=== PATIENT | male | born 1970 ===

== ENCOUNTER 2023-04-25 14:35 | Outpatient (AMB) | payer OTHER, SELFPAY ==
[2023-04-25 14:46] VITALS: BP 112/80; PULSE 64; O2SAT 97
--- NOTE | 2023-04-25 14:46 | HO.NEPHOV_ITS ---
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 He was found to have para esophageal hernia for which he is having a surgical consultation soon. He has cut back on his eating and has lost weight. Imaging studies of his chest and abdomen showed a small renal stone of 1 mm in his right kidney. He has no hematuria or flank pain. He has not passed any grit or gravel. He has been having prostatic symptoms. His last PSA was normal. His last serum creatinine was 1.1. FORMERLY [facility], [facility] Medical History (Updated 04/25/23 @ 16:14 by Octaviano Harrington MD) Absent kidney Surgical History (Updated 04/25/23 @ 14:50 by Josefa Montesinos MA) History of shoulder surgery History of nephrectomy Family History (Updated 04/25/23 @ 14:51 by Josefa Montesinos MA) Mother Kidney disease Maternal Uncle Kidney disease Social History (Updated 04/25/23 @ 14:54 by Josefa Montesinos MA) Comment: Socially/Rare Patient Tobacco Use Status: Never used Tobacco Substance Use Type: Marijuana Vital Signs 04/25/23 14:46 Height 5 ft 6 in Weight 186 lb BMI 30.0 BP 112/80 Blood Pressure Location Lt brachial Position Sitting Pulse 64 Pulse Source Pulse Oximeter Pulse Oximetry (%) 97 Oxygen Delivery Method Room Air Physical Exam Vital Signs: Last Vital Signs Pulse 64 04/25/23 14:46 BP 112/80 04/25/23 14:46 Pulse Ox 97 04/25/23 14:46 Oxygen Delivery Method Room Air 04/25/23 14:46 BMI result Body Mass Index 30.0 Const General: comfortable and no acute distress Orientation/consciousness: patient oriented x3 HEENT Head: Yes normocephalic Mouth: Normal oral and palatal mucosa present Eyes EOM: EOMs intact bilaterally Neck Neck: Yes supple Resp Auscultation: clear to auscultation bilaterally Cardio Jugular venous distension: no JVD Rate: regular rate GI Palpation (GI): Soft to palpation Auscultation: normal bowel sounds General: Yes no CVA tenderness Back/Spine/Pelvis Back: no CVA tenderness Skin General skin exam: no rashes or lesions noted Neuro General: patient oriented x3 and moves all extremities Extrem General: Yes no pedal edema Assessment & Plan Assessment & Plan (1) Calculus (=stone): Code(s): N20.9 - Urinary calculus, unspecified Qualifiers: Urinary calculus location: kidney Qualified Code(s): N20.0 - Calculus of kidney (2) Solitary kidney, acquired: Code(s): Z90.5 - Acquired absence of kidney Plan Dylon has 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 He is not known to have any proteinuria. His blood pressure has been normal. He is at risk for hypertension and hyper filtration. There is no indication for any SYMONE-inhibitor at this moment in time. Recent imaging studies showed 1 mm stone on his right kidney. I asked him to cut down sodium in the diet, increase hydration, increase citrate in the diet and fluid and do a 24 hour urine for stone screen. I also prescribed him Flomax 0.4 mg given his prostatic symptoms. He should be on a low oxalate diet. I plan to repeat an ultrasound after the next visit. He may need HCTZ and or potassium citrate based on evolving data. Answered all question. Follow-up given Orders: Orders Sodium, 24Hr Urine Group Today N20.9 - Urinary calculus, unspecified Oxalate, 24 Hr Today N20.9 - Urinary calculus, unspecified Calcium, 24 Hr Ur Today N20.9 - Urinary calculus, unspecified Uric Acid, 24Hr Urine Group Today N20.9 - Urinary calculus, unspecified Citric Acid 24hr Urine Today N20.9 - Urinary calculus, unspecified Medications: New tamsulosin 0.4 mg PO DAILY 30 days 30 caps 6RF Coding Level of Care Code Est Pt Level 4 (41580) Diagnoses Calculus of kidney N20.0 Urinary calculus location: kidney Solitary kidney, acquired Z90.5 Results Reviewed Nephrology Results: Hgb 15.7 g/dL (14.0-18.0) 10/24/18 WBC 6.6 X10*3/uL (4.8-10.8) 10/24/18 Plt Count 237 X10*3/uL (160-400) 10/24/18 Sodium 139 MMOL/L (135-145) 10/24/18 Potassium 4.4 MMOL/L (3.3-5.1) 10/24/18 Chloride 105 MMOL/L (96-108) 10/24/18 BUN 19 MG/DL (9-16) H 10/24/18 Creatinine 1.25 MG/DL (0.5-1.4) 10/24/18 Calcium 9.7 MG/DL (8.4-10.2) 10/24/18 Urine Protein TRACE (NEG - TRACE) 10/24/18
== END 2023-04-25 15:30 | disposition home or self-care (01) ==
PROVIDERS: PCP Internal Medicine; Visit Provider Internal Medicine Nephrology
DX: N20.0 Calculus of kidney (principal); Z90.5 Acquired absence of kidney
CPT/HCPCS: 99214

== ENCOUNTER → 2023-04-25 14:35 | Outpatient (BNVA) | payer OTHER, SELFPAY | PROVIDERS: PCP Internal Medicine; Visit Provider Internal Medicine Nephrology | DX: N20.0 Calculus of kidney (principal); Z90.5 Acquired absence of kidney | CPT/HCPCS: 99212 ==

== ENCOUNTER 2023-11-19 15:29 | Outpatient (AMB) | payer OTHER, SELFPAY ==
--- NOTE | 2023-11-19 16:16 | HO.NEPHOV ---
Vital Signs 11/19/23 16:17 Height 5 ft 6 in Weight 187 lb 4 oz BMI 30.2 BP 120/82 Blood Pressure Location Lt brachial Position Sitting Pulse 66 Pulse Source Pulse Oximeter Pulse Oximetry (%) 96 Oxygen Delivery Method Room Air Intake Visit Reasons: 6 mon fu/ Needs late appt due to work. 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 He was found to have para esophageal hernia and was repaired. He has cut back on his eating and has lost weight. Imaging studies of his chest and abdomen showed a small renal stone of 1 mm in his right kidney. He has no hematuria or flank pain. He has not passed any grit or gravel. His last PSA was normal. His last serum creatinine was 1.1 PFSH Medical History Absent kidney Surgical History History of shoulder surgery History of nephrectomy Family History Mother Kidney disease Maternal Uncle Kidney disease Social History Comment: Socially/Rare Patient Tobacco Use Status: Never used Tobacco Substance Use Type: Marijuana Physical Exam Vital Signs: Last Vital Signs Pulse 66 11/19/23 16:17 BP 120/82 11/19/23 16:17 Pulse Ox 96 11/19/23 16:17 Oxygen Delivery Method Room Air 11/19/23 16:17 BMI result Body Mass Index 30.2 Const General: comfortable and no acute distress Orientation/consciousness: patient oriented x3 HEENT Head: Yes normocephalic Mouth: Normal oral and palatal mucosa present Eyes EOM: EOMs intact bilaterally Neck Neck: Yes supple Resp Auscultation: clear to auscultation bilaterally Cardio Jugular venous distension: no JVD Rate: regular rate GI Palpation (GI): Soft to palpation Auscultation: normal bowel sounds General: Yes no CVA tenderness Back/Spine/Pelvis Back: no CVA tenderness Skin General skin exam: no rashes or lesions noted Neuro General: patient oriented x3 and moves all extremities Extrem General: Yes no pedal edema Assessment & Plan Assessment & Plan (1) Solitary kidney, acquired: Code(s): Z90.5 - Acquired absence of kidney Category: Medical (2) Calculus (=stone): Code(s): N20.9 - Urinary calculus, unspecified Category: Medical Qualifiers: Urinary calculus location: kidney Qualified Code(s): N20.0 - Calculus of kidney Plan Dylon has 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 He is not known to have any proteinuria. His blood pressure has been normal. He is at risk for hypertension and hyper filtration. There is no indication for any SYMONE-inhibitor at this moment in time. Recent imaging studies showed 1 mm stone on his right kidney. I asked him to cut down sodium in the diet, increase hydration, increase citrate in the diet and fluid . HIs 24 hour urine for stone screen showed hypercalciuria. I increased his Flomax to 0.8 mg given his prostatic symptoms. He should be on a low oxalate diet. I plan to repeat an ultrasound in Mar. He may need HCTZ based on evolving data. Answered all question. Follow-up given Orders: Orders Creatinine Today N20.0 - Calculus of kidney, Z90.5 - Acquired absence of kidney Blood Urea Nitrogen Today N20.0 - Calculus of kidney, Z90.5 - Acquired absence of kidney Electrolytes Today N20.0 - Calculus of kidney, Z90.5 - Acquired absence of kidney Coding Level of Care Code Est Pt Level 4 (73322) Diagnoses Solitary kidney, acquired Z90.5 Calculus of kidney N20.0 Urinary calculus location: kidney
[2023-11-19 16:17] VITALS: BP 120/82; PULSE 66; O2SAT 96; BMI 30.2
== END 2023-11-19 16:45 | disposition home or self-care (01) ==
PROVIDERS: PCP Internal Medicine; Visit Provider Internal Medicine Nephrology
DX: Z90.5 Acquired absence of kidney (principal); N20.0 Calculus of kidney
CPT/HCPCS: 99214

== ENCOUNTER → 2023-11-19 15:29 | Outpatient (BNVA) | payer OTHER, SELFPAY | PROVIDERS: PCP Internal Medicine; Visit Provider Internal Medicine Nephrology | DX: N20.0 Calculus of kidney (principal); Z90.5 Acquired absence of kidney | CPT/HCPCS: 99212 ==

== ENCOUNTER 2024-06-02 14:59 | Outpatient (AMB) | payer OTHER, SELFPAY ==
--- NOTE | 2024-06-02 15:06 | HO.NEPHOV ---
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 He was found to have para esophageal hernia and was repaired. He has cut back on his eating and has lost weight. Imaging studies of his chest and abdomen showed a small renal stone of 1 mm in his right kidney. He has no hematuria or flank pain. He has not passed any grit or gravel. His last PSA was normal. His last serum creatinine was 1.1. He is on Terbanafine FORMERLY [facility], [facility] Medical History Absent kidney Surgical History History of shoulder surgery History of nephrectomy Family History Mother Kidney disease Maternal Uncle Kidney disease Social History Comment: Socially/Rare Patient Tobacco Use Status: Never used Tobacco Substance Use Type: Marijuana Review of Systems Const All systems reviewed & are unremarkable except as noted in HPI and below Physical Exam Vital Signs: Last Vital Signs Pulse 65 06/02/24 15:07 BP 130/80 06/02/24 15:07 Pulse Ox 96 06/02/24 15:07 Oxygen Delivery Method Room Air 06/02/24 15:07 BMI result Body Mass Index 29.5 Const General: comfortable and no acute distress Orientation/consciousness: patient oriented x3 HEENT Head: Yes normocephalic Mouth: Normal oral and palatal mucosa present Eyes EOM: EOMs intact bilaterally Neck Neck: Yes supple Resp Auscultation: clear to auscultation bilaterally Cardio Jugular venous distension: no JVD Rate: regular rate GI Palpation (GI): Soft to palpation Auscultation: normal bowel sounds General: Yes no CVA tenderness Back/Spine/Pelvis Back: no CVA tenderness Skin General skin exam: no rashes or lesions noted Neuro General: patient oriented x3 and moves all extremities Extrem General: Yes no pedal edema Results Reviewed Nephrology Results: Hgb 15.7 g/dL (14.0-18.0) 10/24/18 WBC 6.6 X10*3/uL (4.8-10.8) 10/24/18 Plt Count 237 X10*3/uL (160-400) 10/24/18 Sodium 139 MMOL/L (135-145) 10/24/18 Potassium 4.4 MMOL/L (3.3-5.1) 10/24/18 Chloride 105 MMOL/L (96-108) 10/24/18 BUN 19 MG/DL (9-16) H 10/24/18 Creatinine 1.25 MG/DL (0.5-1.4) 10/24/18 Calcium 9.7 MG/DL (8.4-10.2) 10/24/18 Urine Protein TRACE (NEG - TRACE) 10/24/18 Assessment & Plan Assessment & Plan (1) Calculus (=stone): Code(s): N20.9 - Urinary calculus, unspecified Category: Medical Qualifiers: Urinary calculus location: kidney Qualified Code(s): N20.0 - Calculus of kidney (2) Solitary kidney, acquired: Code(s): Z90.5 - Acquired absence of kidney Category: Medical Plan Dylon has 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 He is not known to have any proteinuria. His blood pressure has been normal. He is at risk for hypertension and hyper filtration. There is no indication for any SYMONE-inhibitor at this moment in time. Last imaging studies showed 1 mm stone on his right kidney. I asked him to cut down sodium in the diet, increase hydration, increase citrate in the diet and fluid . HIs 24 hour urine for stone screen showed hypercalciuria. He can continue Flomax 0.8 mg daily given his prostatic symptoms. He should be on a low oxalate diet. I ordered a repeat a renal ultrasound . He may need HCTZ based on evolving data. Answered all question. Follow-up given Orders: Orders US renal BI 6 Months N20.0 - Calculus of kidney, Z90.5 - Acquired absence of kidney Electrolytes 6 Months N20.0 - Calculus of kidney, Z90.5 - Acquired absence of kidney Calcium 6 Months N20.0 - Calculus of kidney, Z90.5 - Acquired absence of kidney Protein Creatinine Ratio, Ur 6 Months N20.0 - Calculus of kidney, Z90.5 - Acquired absence of kidney Creatinine 6 Months N20.0 - Calculus of kidney, Z90.5 - Acquired absence of kidney Blood Urea Nitrogen 6 Months N20.0 - Calculus of kidney, Z90.5 - Acquired absence of kidney Coding Level of Care Code Est Pt Level 4 (66464) Diagnoses Calculus of kidney N20.0 Urinary calculus location: kidney Solitary kidney, acquired Z90.5
[2024-06-02 15:07] VITALS: BP 130/80; PULSE 65; O2SAT 96; BMI 29.5
== END 2024-06-02 15:44 | disposition home or self-care (01) ==
LOC: HO.HKAS 14:59
PROVIDERS: PCP Internal Medicine; Visit Provider Internal Medicine Nephrology
DX: N20.0 Calculus of kidney (principal); Z90.5 Acquired absence of kidney
CPT/HCPCS: 99214

== ENCOUNTER → 2024-06-02 14:59 | Outpatient (BNVA) | payer OTHER, SELFPAY | PROVIDERS: PCP Internal Medicine; Visit Provider Internal Medicine Nephrology | DX: N20.0 Calculus of kidney (principal); Z90.5 Acquired absence of kidney | CPT/HCPCS: 99212 ==

== ENCOUNTER 2024-11-24 15:11 | Outpatient (AMB) | payer OTHER, SELFPAY ==
--- OUTSIDE RECORDS SUMMARY | 2024-11-19 15:23 | XMS_ITS | Encounter Summary ---
Author Organization [facility] Address [address] [place] [address] Phone Care Team Providers Care Noc Engineer Name Role Phone Cesario Calix MD Unavailable [phone] Cesario Calix MD Primary Care Provider [phone] Encounter Details Date Type Department Care Team (Latest Contact Info) Description 11/19/2024 3:23 PM EDT - 11/19/2024 11:59 PM EDT Hospital Encounter [facility] [address] [place] [address] Octaviano Harrington MD [address] [place] [address] Discharge Disposition: Home or Self Care Social History Tobacco Use Types Packs/Day Years Used Date Smoking Tobacco: Never Smokeless Tobacco: Never Alcohol Use Standard Drinks/Week Comments Never 0 (1 standard drink = 0.6 oz pur e alcohol) Child or Family Care Answer Date Record ed Do you have problems with on e of the following making it difficult for you to work, study, or receive health care? No 07/04/2023 Education Answer Date Recorded Are you interested in help w ith more adult education (for example, completing high school, GED, job training, learning the Stateless language, technical skills, or developing parenting skills)? No 07/04/2023 Are you concerned about learning? Not on file 07/04/2023 No 07/04/2023 Yes 07/04/2023 Food Answer Date Recorded Within the past 6 months we worried whether our food would run out before we got money to buy more. Never True 07/04/2023 Within the past 6 months the food we bought just didn't last and we didn't have enough money to get more. Never True Residential Stability Answer Date Recor ded What is your housing situation today? I have perez sing 07/04/2023 How many times have you move d in the past 12 months? Zero (I did not move) 07/04/2023 Paying for Meds Answer Date Recorded Do you have trouble paying for medicines? No 07/04/2023 Paying Utility Bills Answer Date Record ed Do you have trouble paying your heating or elect ricity bill? No 07/04/2023 Transportation Answer Date Recorded Has the lack of transportati on kept you from medical appointments or from getting medications? No 07/04/2023 Digital Access Answer Date Recorded No 07/04/2023 Yes 07/04/2023 Do you have reliable internet access at home? Ye s 07/04/2023 Do you have a device (e.g., phone, tablet, computer) with a working camera? Yes 07/04/2023 Intimate Partner Violence Answer Date R ecorded Are you denied basic needs s uch as food, clothing, or medical care? No 06/30/2023 In the past 12 months have y ou been in a relationship with a person who hurts, threatens, or tries to control you? No 06/30/2023 Are you denied basic needs s uch as food, clothing, or medical care? No 06/30/2023 In the past 12 months have y ou been in a relationship with a person who hurts, threatens, or tries to control you? 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 Do NOT exceed 3000 mg of acetaminophen per 24 hours from all sources. Available over the counter. 07/01/2023 docusate sodium (COLACE) 100 MG capsule Take 1 capsule (100 mg total) by mouth 2 (two) times a day. 60 capsule 6 06/27/2023 ferrous gluconate 324 mg (37.5 mg elemental) TabIndications:A nemia, unspecified type Take 1 tablet (324 mg total) by mouth daily. STOP taking for 1 week after surgery. 07/01/2023 omeprazole (PRILOSEC) 40 MG capsule Take 1 capsule by mouth 2 (two) times a day. 04/02/2023 tamsulosin (FLOMAX) 0.4 mg Cap Take 1 capsule by mouth every morning. 04/26/2023 documented as of this encounter Plan of Treatment Upcoming Encounters Date Type Department Care Team (Late st Contact Info) Description 04/20/2025 3:15 PM EST Office Visit [facility] [address] [place] [address] [place] [address] Cesario Calix MD [address] [place], [place] [id number] [email or web address] documented as of this encounter Procedures Procedure Name Priority Date/Time Associated Diagnosis Comments TOTAL PROTEIN CREATININE RATIO, RANDOM URINE Routine 11/19/2024 3:34 PM EDT Calculus of kidney Acquired absence of kidney CREATININE/EGFR Routine 11/19/2024 3:24 PM EDT Calculus of kidney Acquired absence of kidney BUN Routine 11/19/2024 3:24 PM EDT Calculus of kidney Acquired absence of kidney CALCIUM Routine 11/19/2024 3:24 PM EDT Calculus of kidney Acquired absence of kidney ELECTROLYTES Routine 11/19/2024 3:24 PM EDT Calculus of kidney Acquired absence of kidney documented in this encounter Results * TOTAL PROTEIN CREATININE RATIO, RANDOM URINE (11/19/2024 3:34 PM EDT) URINE TOTAL PROTEIN 9.0 mg/dL [facility] URINE CREATININE 139 mg/dL [facility] URINE TP CRE RATIO 0.06 0 - 0.19 [facility] Urine (Urine) 11/19/2024 3:3 4 PM EDT 11/19/2024 3:39 PM EDT us Octaviano Harrington MD URINE ORDERABLES Final Result Performing Organization Address [facility] Co de Phone Number [address] [address] * (ABNORMAL) BUN (11/19/2024 3:24 PM EDT) BUN 22(H) 6 - 19 mg/dL [facility] Blood 11/19/2024 3:24 PM EDT 11/19/2024 3:31 PM EDT us Octaviano Harrington MD LAB BLOOD ORDERAB LES Final Result Performing Organization Address [facility] Co de Phone Number [address] [address] * Creatinine/eGFR (11/19/2024 3:24 PM EDT) CREATININE 1.00 0.5 - 1.5 mg/dL [facility] EGFR 88 >59 mL/min/1.7 3m2 [facility] Comment:Estimated glomerular filtration rate calculated using the CKD-EPI refit equation. Blood 11/19/2024 3:24 PM EDT 11/19/2024 3:31 PM EDT us Octaviano Harrington MD LAB BLOOD ORDERAB LES Final Result Performing Organization Address [facility]/ZIP Co de Phone Number [address] [address] * Calcium (11/19/2024 3:24 PM EDT) CALCIUM 9.8 8.4 - 10.3 mg/dL [facility] Blood 11/19/2024 3:24 PM EDT 11/19/2024 3:31 PM EDT us Octaviano Harrington MD LAB BLOOD ORDERAB LES Final Result [address] [address] * Electrolytes (11/19/2024 3:24 PM EDT) SODIUM 139 133 - 146 mmol/L [facility] POTASSIUM 4.2 3.3 - 5.1 mmol/L [facility] CHLORIDE 104 96 - 108 mmol/L [facility] CO2 23 21 - 35 mmol/L [facility] ANION GAP 16 10 - 20 mmol/L [facility] Blood 11/19/2024 3:24 PM EDT 11/19/2024 3:31 PM EDT us Octaviano Harrington MD LAB BLOOD ORDERAB LES Final Result Performing Organization Address City/[facility]/ZIP Co de Phone Number [address] [address] documented in this encounter Visit Diagnoses Diagnosis Calculus of kidney Acquired absence of kidney documented in this encounter Additional Health Concerns Assessment Noted Time PHQ-2 Depression Total Score: 0 07/04/19 24 9:29 PM EDT documented as of this encounter Care Teams Noc Engineer Relationship Specialty Start Date End Date Cesario Calix MD [address] [place] [address], [address] [place] [address] PCP - General 03/21/17 Cesario Calix MD [address] [place] [address], [address] [place] [address] [email or web address] LMR Provider 01/03/17 documented as of this encounter Additional Source Comments The information contained in this document represents components of the legal health record. It is not the complete legal health record.[facility]
--- NOTE | 2024-11-24 15:17 | HO.NEPHOV_ITS ---
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 He was found to have para esophageal hernia and was repaired. He has cut back on his eating and has lost weight. Imaging studies of his chest and abdomen showed a small renal stone of 1 mm in his right kidney. He has no hematuria or flank pain. He has not passed any grit or gravel. His last PSA was normal. His last serum creatinine was 1.0. [facility] Medical History Absent kidney Surgical History History of shoulder surgery History of nephrectomy Family History Mother Kidney disease Maternal Uncle Kidney disease Social History Comment: Socially/Rare Patient Tobacco Use Status: Never used Tobacco Substance Use Type: Marijuana Review of Systems Const All systems reviewed & are unremarkable except as noted in HPI and below Physical Exam Vital Signs: Last Vital Signs BP 114/80 11/24/24 15:19 BMI result Body Mass Index 30.5 Const General: comfortable and no acute distress Orientation/consciousness: patient oriented x3 HEENT Head: Yes normocephalic Mouth: Normal oral and palatal mucosa present Eyes EOM: EOMs intact bilaterally Neck Neck: Yes supple Resp Auscultation: clear to auscultation bilaterally Cardio Jugular venous distension: no JVD Rate: regular rate GI Palpation (GI): Soft to palpation Auscultation: normal bowel sounds General: Yes no CVA tenderness Back/Spine/Pelvis Back: no CVA tenderness Skin General skin exam: no rashes or lesions noted Neuro General: patient oriented x3 and moves all extremities Extrem General: Yes no pedal edema Assessment & Plan Assessment & Plan (1) Solitary kidney, acquired: Code(s): Z90.5 - Acquired absence of kidney Category: Medical (2) Calculus (=stone): Code(s): N20.9 - Urinary calculus, unspecified Category: Medical Qualifiers: Urinary calculus location: kidney Qualified Code(s): N20.0 - Calculus of kidney Plan Dylon has 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 He is not known to have any proteinuria. His blood pressure has been normal. He is at risk for hypertension and hyper filtration. There is no indication for any SYMONE-inhibitor at this moment in time. Last imaging studies showed no stone on his right kidney. I asked him to cut down sodium in the diet, increase hydration, increase citrate in the diet and fluid . HIs 24 hour urine for stone screen showed hypercalciuria. He can continue Flomax 0.8 mg daily given his prostatic symptoms. He should be on a low oxalate diet. He may need HCTZ based on evolving data. Answered all question. Follow-up given Orders: Orders Calcium 8 Months N20.0 - Calculus of kidney, Z90.5 - Acquired absence of kidney Protein Creatinine Ratio, Ur 8 Months N20.0 - Calculus of kidney, Z90.5 - Acquired absence of kidney Creatinine 8 Months N20.0 - Calculus of kidney, Z90.5 - Acquired absence of kidney Blood Urea Nitrogen 8 Months N20.0 - Calculus of kidney, Z90.5 - Acquired absence of kidney Electrolytes 8 Months N20.0 - Calculus of kidney, Z90.5 - Acquired absence of kidney Coding Level of Care Code Est Pt Level 4 (48585) Diagnoses Solitary kidney, acquired Z90.5 Calculus of kidney N20.0 Urinary calculus location: kidney
[2024-11-24 15:19] VITALS: BP 114/80; BMI 30.5
--- OUTSIDE RECORDS SUMMARY | 2024-11-24 17:34 | XMS_ITS | Encounter Summary ---
Author Organization [facility] Address [address] [place] [address] Phone Care Team Providers Care Night Filler Name Role Phone Cesario Calix MD Unavailable [phone] Cesario Calix MD Primary Care Provider [phone] Encounter Details Date Type Department Care Team (Late st Contact Info) Description 04/02/2023 Procedure Pass [facility] Endoscopy Admitting Dept Virtual Department [address] [place] [address] Social History Tobacco Use Types Packs/Day Years Used Date Smoking Tobacco: Never Smokeless Tobacco: Never Alcohol Use Standard Drinks/Week Comments Not Currently 0 (1 standard drink = 0.6 oz pur e alcohol) rare Child or Family Care Answer Date Record ed Do you have problems with on e of the following making it difficult for you to work, study, or receive health care? No 05/08/2020 Education Answer Date Recorded Are you interested in more education? Not on lisset e 07/13/2022 Are you concerned about learning? Not on file 07/13/2022 No 07/13/2022 No 07/13/2022 Food Answer Date Recorded Within the past 6 months we worried whether our food would run out before we got money to buy more. Never True 05/08/2020 Within the past 6 months the food we bought just didn't last and we didn't have enough money to get more. Never True Paying for Meds Answer Date Recorded Do you have trouble paying for medicines? No 05/08/2020 Paying Utility Bills Answer Date Record ed Do you have trouble paying your heating or elect ricity bill? No 05/08/2020 Transportation Answer Date Recorded Has the lack of transportati on kept you from medical appointments or from getting medications? No 05/08/2020 Digital Access Answer Date Recorded No 08/13/2022 No 08/13/2022 Reliable internet access at home? Not on file 08/13/2022 Device with a working camera? Not on file Sex and Gender Information Value Date Recorded Sex Assigned at Male 05/07/2019 9:59 PM EST Legal Sex Male 9:36 PM EDT Gender Identity Male 05/07/2019 9:59 PM EST Sexual Orientation Straight 06/30/2023 5: 33 AM EDT documented as of this encounter Plan of Treatment Upcoming Encounters Date Type Department Care Team (Late st Contact Info) Description 04/20/2025 3:15 PM EST Office Visit [address] [address] Cesario Calix MD [address] [place] [address], [address] [address] documented as of this encounter Visit Diagnoses Not on filedocumented in this encounter Additional Health Concerns Assessment Noted Time PHQ-2 Depression Total Score: 0 03/08/20 23 11:27 AM EST documented as of this encounter Care Teams Night Filler Relationship Specialty Start Date End Date Cesario Calix MD [address] [place] [address], [address] [address] PCP - General 03/21/17 Cesario Calix MD [address] [place] [address], [address] [address] Historical LMR Provider 01/03/17 documented as of this encounter Additional Source Comments The information contained in this document represents components of the legal health record. It is not the complete legal health record.[facility]
--- OUTSIDE RECORDS SUMMARY | 2024-11-24 17:34 | XMS_ITS | Encounter Summary ---
Author Organization [facility] Address [address] [facility] [facility] [address] [place] [address] Phone Care Team Providers Care Pack Worker Name Role Phone Primitivo Zavaleta DPM Unavailable Unavailable Cesario Calix MD Unavailable [phone] Nathalie Ledesma CNP Unavailable [phone] Cesario Calix MD Primary Care Provider [phone] Cesario Calix MD Unavailable [phone] Encounter Details Date Type Department Care Team (Late st Contact Info) Description 02/26/2020 Procedure Pass [place] Admitting Dept - Virtual Department [address] [place] [address] Social History Tobacco Use Types Packs/Day Years Used Date Smoking Tobacco: Never Smokeless Tobacco: Never Alcohol Use Standard Drinks/Week Comments Not Currently 0 (1 standard drink = 0.6 oz pur e alcohol) rare Sex and Gender Information Value Date Recorded Sex Assigned at Male 05/07/2019 9:59 PM EST Legal Sex Male 9:36 PM EDT Gender Identity Male 05/07/2019 9:59 PM EST Sexual Orientation Straight 06/30/2023 5: 33 AM EDT documented as of this encounter Plan of Treatment Upcoming Encounters Date Type Department Care Team (Late st Contact Info) Description 04/20/2025 3:15 PM EST Office Visit [address] [place] [address] Cesario Calix MD [address] [facility], [address] [place] [address] documented as of this encounter Visit Diagnoses Not on filedocumented in this encounter Care Teams Pack Worker Relationship Specialty Start Date End Date Cesario Calix MD [address] [place] [address], [address] [place] [address] PCP - General 03/21/17 Primitivo Zavaleta DPM [address] [place] [address] Historical LMR Provider 01/03/1703/25/21 Cesario Calix MD [address] [place] [address], [address] [place] [address] Historical LMR Provider 01/03/17 Nathalie Ledesma CNP [address] [place] [address], [address] [place] [address] Historical LMR Provider 01/03/17 Cesario Calix MD [address] [place] [address], [address] [place] [address] Insurance Assigned Provider 11/28/19 documented as of this encounter Additional Source Comments The information contained in this document represents components of the legal health record. It is not the complete legal health record.[facility]
--- OUTSIDE RECORDS SUMMARY | 2024-11-24 17:34 | XMS_ITS | Encounter Summary ---
Author Organization [facility] Address [address] [place] [address] Phone Care Team Providers Care Youth Minister Name Role Phone Cesario Calix MD Unavailable [phone] Cesario Calix MD Primary Care Provider [phone] Encounter Details Date Type Department Care Team (Late st Contact Info) Description 06/29/2023 Procedure Pass [facility] Periop 1st floor [address] [place] [address] Social History Tobacco Use Types Packs/Day Years [...] got money to buy more. Never True 06/30/2023 Within the past 6 months the food we bought just didn't last and we didn't have enough money to get more. Never True Residential Stability Answer Date Recor ded What is your housing situation today? I have [employer] pool 06/30/2023 How many times have you move d in the past 12 months? Zero (I did not move) 06/30/2023 Paying for Meds Answer Date Recorded Do you have trouble paying for medicines? No 06/30/2023 Paying Utility Bills Answer Date Record ed Do you have trouble paying your heating or elect ricity bill? No 06/30/2023 Transportation Answer Date Recorded Has the lack of transportati on kept you from medical appointments or from getting medications? No 06/30/2023 Digital Access Answer Date Recorded No 06/30/2023 Yes 06/30/2023 Do you have reliable internet access at home? Ye s 06/30/2023 Do you have a device (e.g., phone, tablet, computer) with a working camera? 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 Wish to be (Past 1 Month) No 024 12:47 AM EDT Negin Ferreira RN 2. Non-Specific Active Suici claudy Thoughts (Past 1 Month) No 06/30/2023 12:47 AM EDT Negin Ferreira RN 6. Suicidal Behavior (Lifetime) No 4 12:47 AM EDT Negin Ferreira RN documented as of this encounter Plan of Treatment Upcoming Encounters Date Type Department Care Team (Late st Contact Info) Description 04/20/2025 3:15 PM EST Office Visit [address] [address] Cesario Calix MD [address] [facility], [address] [place] [address] [email or web address] documented as of this encounter Visit Diagnoses Not on filedocumented in this encounter Additional Health Concerns Assessment Noted Time PHQ-2 Depression Total Score: 0 03/08/20 23 11:27 AM EST documented as of this encounter Care Teams Youth Minister Relationship Specialty Start Date End Date Cesario Calix MD [address] [place] [address], [address] [place] [address] PCP - General 03/21/17 Cesario Calix MD [address] [place] [address], [address] [place] [address] Historical LMR Provider 01/03/17 documented as of this encounter Additional Source Comments The information contained in this document represents components of the legal health record. It is not the complete legal health record.[facility]
--- OUTSIDE RECORDS SUMMARY | 2024-11-24 17:34 | XMS_ITS | Clinical Summary ---
Author Organization [facility] Address [address] [facility] [place] [address] [place] [address] Phone Care Team Providers Care Class B Truck Driver Name Role Phone Lizzy Calix MD Unavailable [phone] Lizzy Calix MD Primary Care Provider [phone] Allergies No known active allergies Medications tamsulosin (FLOMAX) 0.4 mg Cap Take 1 capsule by mouth every morning. 4 Active omeprazole (PRILOSEC) 40 MG capsule Take 1 capsule by mouth 2 (two) times a day. 4 Active docusate sodium (COLACE) 100 MG capsule Take 1 capsule (100 mg total) by mouth 2 (two) times a day. 60 capsule 6 4 Active acetaminophen (TYLENOL) 325 mg tablet Take 2 tablets (650 mg total) by mouth every 6 (six) hours as needed (Mild acute post-operative pain). Do NOT exceed 3000 mg of acetaminophen per 24 hours from all sources. Available over the counter. 4 Active ferrous gluconate 324 mg (37.5 mg elemental) TabIndications: Anemia, unspecified type Take 1 tablet (324 mg total) by mouth daily. STOP taking for 1 week after surgery. 4 Active Active Problems Problem Noted Date Diagnosed Date Benign prostatic hyperplasia with urinary hesita ncy 01/30/2024 Nephrolithiasis 01/30/2024 Overview (01/30/2024): 1mm R stone on CT 2023 Onychomycosis 07/11/2023 Overview (07/11/2023): Trim nail, try Vicks. He had previous oral terbinafine. Hiatal hernia 06/29/2023 Paraesophageal hernia with gastroesophageal refl ux 05/13/2023 Overview (07/11/2023): 2023: hospitalized from June 28 June 30 for laparoscopic takedown of incarcerated paraesophageal hernia and hiatal hernia by Dr. Rangel at [facility]. Assessment & Plan (05/13/2023 4:01 PM EST): This is a 52-year-old gentleman with newly diagnosed paraesophageal hernia causing early satiety, partial obstruction, weight loss, and reflux and limiting his quality of life. 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 The patient has significant esophageal dysmotility given this paraesophageal hernia as well as reflux of the clavicles. I discussed laparoscopic repair of paraesophageal hernia in detail including risk benefits and alternatives and patient would like to proceed with this procedure. The patient was told he must remain on a pur ed diet for 2 weeks following the procedure. He will avoid all heavy lifting greater than 5 to 10 pounds for the first 2 weeks and greater than 15 pounds for the second 2 weeks. I will follow-up with him 2 weeks following the procedure. We will schedule this sometime in the near future. 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 Grade 3 separation of left shoulder 10/02/2019 Resolved Problems Problem Noted Date Diagnosed Date Resolved Date Dyspepsia 03/15/2023 07/11/2023 Intractable abdominal pain 03/15/2023 0 07/11/2023 Unintended weight loss 03/15/202307/10 Overview (03/15/2023): Fall 2022, reports being dt abd pain Encounters Date Type Department Care Team Description 11/19/2024 3:23 PM EDT - 11/19/2024 11:59 PM EDT Hospital Encounter [facility] Laboratory [address] [place] [address] Octaviano Harrington MD Discharge Disposition: Home or Self Care 11/19/2024 Transcribe Orders [facility] Laboratory [address] [place] [address] Octaviano Harrington MD Calculus of kidney (Primary Dx); Acquired absence of kidney from Last 3 Months Immunizations Immunization Administration Dates Next Due COVID-19 (Pre-01/07) Pfizer Vaccine, mRNA, PF 05/30/2020,05/09/2020 Hepatitis B Adult 10/02/2010,06/01/2010,01/27/20 10 INFLUENZA, SPLIT VIRUS, TRIVALENT PF 01/30/2024( Deferred: Other - pt left) INFLUENZA, SPLIT VIRUS, TRIV ALENT W/ PRESERVATIVE IM 03/17/2013,01/02/2010 Influenza Trivalent Adjuvant ed Preservative free IM 11/27/2017 Td (adult),2 Lf Tetanus Toxo id, PF, Adsorbed 06/27/2020 Tdap 01/13/2010 Family History Medical History Relation Comments Kidney failure Mother Relation Status Comments Brother Alive Mother Alive Social History Tobacco Use Types Packs/Day Years [...] high school, GED, job training, learning the Citizen [place] language, technical skills, or developing parenting skills)? 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 Not on file Not on f ile Last Filed Vital Signs Vital Sign Reading Time Taken Comments Blood Pressure 104/62 01/30/2024 2:59 PM EST Pulse 72 01/30/2024 2:59 PM EST Temperature 36.8 C (98.3 F) 01/30/2024 2:59 PM EST Respiratory Rate 18 07/01/2023 11:17 AM EDT Oxygen Saturation 96% 01/30/2024 2:59 PM EST Inhaled Oxygen Concentration - - Weight 85.3 kg (188 lb) 01/30/2024 2:59 PM EST Height 165.5 cm (5' 5.16 ) 01/30/2024 2:59 PM ES T Body Mass Index 31.13 01/30/2024 2:59 PM EST Plan of Treatment Upcoming Encounters Date Type Department Care Team (Late st Contact Info) Description 04/20/2025 3:15 PM EST Office Visit [facility] Medicine [address] [place] [address] [place] [address] Lizzy Calix MD [address] [facility] [place] [address] [email or web address] Health Maintenance Due Date Last Done Comments FIT TEST 2013 FOBT 2013 SIGMOIDOSCOPY 2013 VIRTUAL COLONOSCOPY 2013 PNEUMOCOCCAL VACCINES (50+ years) (1 of 1 - PCV) 2018 ZOSTER VACCINES (1 of 2) 2018 COLOGUARD 03/18/2022 03/18/2019 DEPRESSION SCREENING 07/03/2024 07/04/2023, 12/15/19 20 INFLUENZA VACCINE (#1) 2024 8, 03/17/2013, 01/02/2010 COVID-19 VACCINE ( season) 2024 01/30/2022, 01/16/2021, 05/30/2020, Additional history exists SCREENING FOR DIABETES 06/30/2026 07/01/2023, 2022 LIPID PANEL 02/05/2029 02/06/2024, 02/16, 06/27/2020, Additional history exists Adult Td,Tdap Booster 06/27/2030 06/27/2020, 010 COLONOSCOPY 04/02/2033 04/02/2023 COLORECTAL CANCER SCREENING 04/02/2033 HEPATITIS C SCREENING Completed 06/27/2020 , 06/27/2020, 02/23/2020 SMOKING STATUS SCREENING (Once After 26 Yrs) Completed 07/15/2023 HIV ONE-TIME SCREENING (18-65 YEARS) Completed 02/06/2024 HEPATITIS A VACCINES Aged Out No long er eligible based on patient's age to complete this topic HIB VACCINES Aged Out No longer eligi ble based on patient's age to complete this topic MENINGOCOCCAL VACCINES (ACWY) Aged Out No longer eligible based on patient's age to complete this topic MENINGOCOCCAL VACCINES (B) Aged Out N o longer eligible based on patient's age to complete this topic Medical Devices Implanted Type Area Automotive Parts Clerk Device Identifier Shelf Expiration Date Model / Serial / Lot Tissue Graft 230x7.5mm Flexi Allo Tendon Anterior Tibialis Frozen - [id number] Implanted:Qty : 1 on 02/26/2020 by Johan Tsang DO at [facility] BONETISSUE Left: Clavicle [employer] 12/20/2024 BETH/TIB/ T / / Button Bit [id number] Drill Bone Acufex Ss Cannulated - [id number] Implanted:Qty : 1 on 02/26/2020 by Johan Tsang DO at [facility] STANDARD Left: Clavicle PLASCENCIA 06/09/2024 [id number] / / [id number] Kit Laboratory Plate Screw Acu Sinch - [id number] Implanted:Qty : 1 on 02/26/2020 by Johan Tsang DO at [facility] Left: Clavicle [employer] 06/16/2024 [id number] / / [id number] Procedures Procedure Name Priority Date/Time Associated Diagnosis [...] Calculus of kidney Acquired absence of kidney LIPID PANEL Routine 02/06/2024 3:28 PM EST Well adult health check ENDOSCOPY, COLON 04/02/2023 7:10 AM EST HEPATITIS C ANTIBODY, QUALITATIVE Routine 06/27/2020 10:44 AM EDT Annual physical exam OUTSIDE COLOGUARD Routine 03/18/2019 from Last 3 Months or Most Recently Relevant to Health Maintenance Results * TOTAL PROTEIN CREATININE RATIO, RANDOM URINE (11/19/2024 3:34 PM EDT) URINE TOTAL PROTEIN 9.0 mg/dL [facility] URINE CREATININE 139 mg/dL [facility] URINE TP CRE RATIO 0.06 0 - 0.19 [facility] Urine (Urine) 11/19/2024 3:3 4 PM EDT 11/19/2024 3:39 PM EDT us Octaviano Harrington MD URINE ORDERABLES Final Result [facility] [address] [place] [address] * Creatinine/eGFR (11/19/2024 3:24 PM EDT) CREATININE 1.00 0.5 - 1.5 mg/dL [facility] EGFR 88 >59 mL/min/1.7 3m2 [facility] Comment:Estimated glomerular filtration rate calculated using the CKD-EPI refit equation. Blood 11/19/2024 3:24 PM EDT 11/19/2024 3:31 PM EDT us Octaviano Harrington MD LAB BLOOD ORDERAB LES Final Result Performing Organization Address [facility]/ZIP Co de Phone Number [address] [address] * (ABNORMAL) BUN (11/19/2024 3:24 PM EDT) BUN 22(H) 6 - 19 mg/dL [facility] Blood 11/19/2024 3:24 PM EDT 11/19/2024 3:31 PM EDT us Octaviano Harrington MD LAB BLOOD ORDERAB LES Final Result Performing Organization Address [facility]/ZIP Co de Phone Number [address] [address] * Calcium (11/19/2024 3:24 PM EDT) CALCIUM 9.8 8.4 - 10.3 mg/dL [facility] Blood 11/19/2024 3:24 PM EDT 11/19/2024 3:31 PM EDT us Octaviano Harrington MD LAB BLOOD ORDERAB LES Final Result Performing Organization Address [facility]/ZIP Co de Phone Number [address] [address] * Electrolytes (11/19/2024 3:24 PM EDT) SODIUM 139 133 - 146 mmol/L [facility] POTASSIUM 4.2 3.3 - 5.1 mmol/L [facility] CHLORIDE 104 96 - 108 mmol/L [facility] CO2 23 21 - 35 mmol/L [facility] ANION GAP 16 10 - 20 mmol/L [facility] Blood 11/19/2024 3:24 PM EDT 11/19/2024 3:31 PM EDT us Octaviano Harrington MD LAB BLOOD ORDERAB LES Final Result Performing Organization Address [facility]/ZIP Co de Phone Number [address] [address] * (ABNORMAL) Lipid panel (02/06/2024 3:28 PM EST) HDL 37 mg/dL [facility] Comment: Interpretation <40 mg/dL: Low HDL cholesterol (major risk factor for CHD) Greater than or equal to 60 mg/dL: High HDL cholesterol ( negative risk factor for CHD) HDL - cholesterol is affected by a number of factors, e.g. smoking, excerise, hormones, sex and age. CHOLESTEROL 212 0 - 240 mg/dL [facility] TRIGLYCERIDES 503(H) 30 - 160 mg/dL [facility] LDL NOT CALCULATED 50 - 129 mg/dL [facility] Comment: Unable to calculate due to elevated TRIG of greater than 400. A measured LDL will be performed. CARDIAC RISK RATIO 5.7(H) 3.4 - 5.0 [facility] Blood 02/06/2024 3:28 PM EST 02/06/2024 3:30 PM EST us Lizzy Calix MD LAB BLOOD ORDERABLES Final Resu lt Performing Organization Address [facility]/ZIP Co de Phone Number [address] [address] * ENDOSCOPY, COLON (04/02/2023 7:10 AM EST) Narrative Transcriptions Chelsea Tam MD, MPH - 04/02/2023 7:10 AM EST [facility] Patient Name: Dylon Us Attending MD:: CHELSEA TAM MD, Procedure Date: 04/02/2023 7:10 AM Date of : 1970 Age: 52 Admit Type: Outpatient Gender: Male Room: [facility] Referring MD: LIZZY CALIX Exam Type: Colonoscopy Indications: Iron deficiency anemia Medications: Monitored Anesthesia Care Procedure: Informed consent was obtained from the patientafter discussion of the indications, limitations, alternatives, benefits, and risks of the procedure. Risks specifically discussed include but are not limited to medication reactions, missed lesions, bleeding, perforation, or the need for emergent surgery. Throughout the procedure, the patient's blood pressure, pulse, end-tidal CO2, and oxygensaturations were monitored continuously. The Olympus adult variable colonoscope CF-[id number] #7 was introduced through the anus and advanced to the terminal ileum. The colonoscopy was performedwithout difficulty. The patient tolerated the procedurewell. The quality of the bowel preparation was evaluated using the BBPS ([place] Bowel Preparation Scale)with scores of: Right Colon = 3, Transverse Colon = 3and Left Colon = 3 (entire mucosa seen well with no residual staining, small fragments of stool oropaque liquid). The total BBPS score equals 9. Theterminal ileum, ileocecal valve, appendiceal orifice, and rectum were photographed. Complications: No immediate complications. Findings: The perianal and digital rectal examinations were normal. Few patchy lesions in the terminal ileum were moderately erythematous. . Biopsies were taken witha cold forceps for histology. The colon (entire examined portion) appearednormal. Non-bleeding internal hemorrhoids were found during retroflexion. The hemorrhoids were medium-sized. Impression: - Erythematous mucosa in the terminal ileum.Biopsied. - The entire examined colon is normal. - Non-bleeding internal hemorrhoids. Recommendation: - Await pathology results. - Will order CTE to rule out small bowel pathology contributing to patient's severe LAVONNE. Dr Chelsea Tam CHELSEA TAM MD 04/02/2023 8:23:50 AM This report has been signed electronically. Number of Addenda: 0 Note Initiated On: 04/02/2023 7:10 AM Procedure Code(s): --- Professional --- 98395, Colonoscopy, flexible; with biopsy, single or multiple --- Technical --- 24453, Colonoscopy, flexible; with biopsy, single or multiple Diagnosis Code(s): --- Professional --- K63.89, Other specified diseases of intestine K64.8, Other hemorrhoids D50.9, Iron deficiency anemia, unspecified --- Technical --- K63.89, Other specified diseases of intestine K64.8, Other hemorrhoids D50.9, Iron deficiency anemia, unspecified CPT copyright 2021 [employer]. All rights reserved. The codes documented in this report are preliminary and upon time clock inspector reviewmay be revised to meet current compliance requirements. Procedure Date: 04/02/2023 7:10:[address] [place] [id number] us Lizzy Calix MD GI PROCEDURE ORDERABLES Final R esult * Hepatitis C antibody, qualitative (06/27/2020 10:44 AM EDT) HCV NON-REACTIV E NON-REACTI VE [facility] Blood 06/27/2020 10:4 4 AM EDT 06/27/2020 10:50 AM EDT us Lizzy Calix MD LAB BLOOD ORDERABLES Final Resu lt [address] [address] * OUTSIDE COLOGUARD (03/18/2019) Outside Cologuard Neg us Historical Provider HEALTH MAINTENANCE Final Result from Last 3 Months or Most Recently Relevant to Health Maintenance Insurance CONNECTORCARE DIRECT [facility] CONNECTORCARE DIRECT CONNE[employer]CARE DIRECT [employer]ARE DIRECT CONNE[employer]CARE DIRECT Advance Directives For more information, please contact: [phone] (9AM - 5PM [facility], Saturday-Saturday) Documents on File Type Date Recorded 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 It is not the complete legal health record.[facility]
--- OUTSIDE RECORDS SUMMARY | 2024-11-24 17:34 | XMS_ITS | Encounter Summary ---
Author Organization [facility] Address [address] [facility] [address] [place] [address] Phone Care Team Providers Care Mammographer Name Role Phone Cesario Calix MD Unavailable [phone] Cesario Calix MD Primary Care Provider [phone] Reason for Referral * MRI/CAT Scan - Closed Specialty Diagnoses / Procedures Referred By Kristine abarca Referred To Contact Radiology Diagnoses Bloating Iron deficiency anemia, unspecified iron deficiency anemia type Weight loss Procedures CT Abdomen/Pelvis Enterography CHG CT SCAN,ABDOMENT AND PELVIS,W CONTRAST CHG CT SCAN,ABDOMENT AND PELVIS,W/O CONTRAST CHG CT SCAN,ABDOMENT AND PELVIS,COMBO Ronna Tam MD Phone: tel: fax: mailto:[email or web address] Referral ID Status Reason Start Date Expiration Date Visits Re quested Visits Authorized [id number] Closed 04/02/2023 07/01/2023 1 1 Encounter Details Date Type Department Care Team (Latest Contact Info) Description 04/02/2023 Transcribe Orders Virtual Department [address] [place] [address] Ronna Tam MD [address] [place] [id number] Hernia, hiatal (Primary Dx); Bloating; Iron deficiency anemia, unspecified iron deficiency anemia type; Weight loss Social History Tobacco Use Types Packs/Day Years [...] Description 04/20/2025 3:15 PM EST Office Visit [facility] [address] [place] [address] [place] [address] Cesario Calix MD [address] [place] [address] [address] [place] [address] [email or web address] documented as of this encounter Results * FL BARIUM SWALLOW ESOPHAGRAM DOUBLE CONTRAST (04/17/2023 9:24 AM EST) Anatomical Region Laterality Modality Chest Computed Radiogr aphy 04/17/2023 1:52 PM EST Impressions 04/17/2023 8:21 PM EST Moderate to large hiatal hernia, mostly if not entirely paraesophageal type. Moderate to marked esophageal dysmotility. Equivocal filling defect within the distal esophagus adjacent to GE junction favored to reflect effects of compression from paraesophageal hernia. FLUOROSCOPY TIME: 1 minute 47 seconds NUMBER OF IMAGES: [id number] ATTESTATION: I, Miguelangel Pool as teaching physician, have reviewed the images for this case and if necessary edited the report originally created by Ammon Tracy. Narrative 04/17/2023 8:21 PM EST BARIUM SWALLOW ESOPHAGRAM DOUBLE CONTRAST HISTORY: Evaluate hiatal hernia. COMPARISON: CT abdomen 04/15/2023. OPERATORS: Ammon Tracy SUPERVISING PHYSICIAN: Miguelangel Pool TECHNIQUE: Double contrast barium swallow examination was performed with Sodium Carbonate and Barium. FINDINGS: A preliminary lateral view of the neck demonstrates no acute osseous abnormality. There is small calcifications demonstrated in the ligamentum nuchae at the C4 and C6 level. ESOPHAGUS: Motility: Moderate to marked esophageal dysmotility evidenced by tertiary contractions. Mucosa: Oblique views of the GE junction raise question of filling defect within the distal esophagus close to the GE junction, an appearance likely related to compression from adjacent paraesophageal hernia. Mass is difficult to exclude although assessment of recent CT from 04/15/2023 is reassuring. Esophageal mucosa otherwise normal.. Distensibility: Normal. GASTROESOPHAGEAL JUNCTION: Moderate to large hiatal hernia with prominent paraesophageal component. The GE junction appears to be near the level of the diaphragm, precise position is difficult to assess. TABLET: No impedance to the passage of a 13 mm barium tablet into the stomach. GASTROESOPHAGEAL REFLUX: Spontaneous gastroesophageal reflux to the level of the clavicles. Procedure Note Miguelangel Pool MD - 04/17/2023 BARIUM SWALLOW ESOPHAGRAM DOUBLE CONTRAST HISTORY: Evaluate hiatal hernia. COMPARISON: CT abdomen 04/15/2023. OPERATORS: Ammon Tracy SUPERVISING PHYSICIAN: Miguelangel Pool TECHNIQUE: Double contrast barium swallow examination was performed withSodium Carbonate and Barium. FINDINGS: A preliminary lateral view of the neck demonstrates no acute osseousabnormality. There is small calcifications demonstrated in the ligamentumnuchae at the C4 and C6 level. ESOPHAGUS: Motility: Moderate to marked esophageal dysmotility evidenced bytertiary contractions. Mucosa: Oblique views of the GE junction raise question of fillingdefect within the distal esophagus close to the GE junction, an appearancelikely related to compression from adjacent paraesophageal hernia. Mass isdifficult to exclude although assessment of recent CT from 04/15/2023 isreassuring. Esophageal mucosa otherwise normal.. Distensibility: Normal. GASTROESOPHAGEAL JUNCTION: Moderate to large hiatal hernia with prominentparaesophageal component. The GE junction appears to be near the level ofthe diaphragm, precise position is difficult to assess. TABLET: No impedance to the passage of a 13 mm barium tablet into thestomach. GASTROESOPHAGEAL REFLUX: Spontaneous gastroesophageal reflux to the levelof the clavicles. IMPRESSION: Moderate to large hiatal hernia, mostly if not entirely paraesophagealtype. Moderate to marked esophageal dysmotility. Equivocal filling defect within the distal esophagus adjacent to GEjunction favored to reflect effects of compression from paraesophagealhernia. FLUOROSCOPY TIME: 1 minute 47 seconds NUMBER OF IMAGES: [id number] ATTESTATION: I, Miguelangel Pool as teaching physician, have reviewed theimages for this case and if necessary edited the report originally createdby Ammon Tracy. us Ronna Tam MD [facility] Final Resul t * CT ABDOMEN/PELVIS (ENTEROGRAPHY) WITH CONTRAST (04/15/2023 5:06 PM EST) Anatomical Region Laterality Modality Abdomen, Pelvis Computed Tomogra phy 04/15/2023 8:59 PM EST Impressions 04/16/2023 5:32 AM EST No cause for the reported symptoms identified in the abdomen/pelvis. Narrative 04/16/2023 5:[address] ABDOMEN/PELVIS (ENTEROGRAPHY) WITH CONTRAST Referring clinician's provided indication for this examination in Epic: Outside Radiology Order; BLOATING TECHNIQUE: Multidetector-row CT of the abdomen and pelvis was performed after administration of intravenous contrast using tailored dose modulation techniques. Images were reconstructed in the axial, coronal, and sagittal planes. COMPARISON: None FINDINGS: Lower Chest: Normal. No consolidation or pleural effusions. Liver: No suspicious focal liver lesion. Biliary: No biliary ductal dilatation. Spleen: Normal. No splenomegaly or focal lesions. Pancreas: Normal. No masses or ductal dilatation. Adrenal Glands: Normal. No nodules. Kidneys/Ureters: No right solid renal mass. Prior left nephrectomy. 1 mm nonobstructing right lower pole renal stone on 3:207. Mild prominence of the right renal calyces, without evidence of ureteral obstruction. Bowel: No bowel obstruction or wall thickening. Large hiatal hernia containing the proximal half of the stomach, partially imaged. Colonic diverticulosis. Peritoneum/Retroperitoneum: Normal. No masses, pneumoperitoneum, or fluid. Lymph Nodes: Normal. No lymphadenopathy. Pelvic Organs/Bladder: Normal. No mass. Vessels: No abdominal aortic aneurysm. Mild vascular calcification. Bones/Soft Tissues: No suspicious focal osseous lesion. Small fat-containing left inguinal hernia. Sclerosis adjacent to the left aspect of the pubic symphysis is likely degenerative. Lucency along the T11 vertebral body is most likely a benign hemangioma. Procedure Note Saúl Carlin MD - 04/16/2023 CT ABDOMEN/PELVIS (ENTEROGRAPHY) WITH CONTRAST Referring clinician's provided indication for this examination in Epic:Outside Radiology Order; BLOATING TECHNIQUE: Multidetector-row CT of the abdomen and pelvis was performedafter administration of intravenous contrast using tailored dosemodulation techniques. Images were reconstructed in the axial, coronal,and sagittal planes. COMPARISON: None FINDINGS: Lower Chest: Normal. No consolidation or pleural effusions. Liver: No suspicious focal liver lesion. Biliary: No biliary ductal dilatation. Spleen: Normal. No splenomegaly or focal lesions. Pancreas: Normal. No masses or ductal dilatation. Adrenal Glands: Normal. No nodules. Kidneys/Ureters: No right solid renal mass. Prior left nephrectomy. 1 mmnonobstructing right lower pole renal stone on 3:207. Mild prominence ofthe right renal calyces, without evidence of ureteral obstruction. Bowel: No bowel obstruction or wall thickening. Large hiatal herniacontaining the proximal half of the stomach, partially imaged. Colonicdiverticulosis. Peritoneum/Retroperitoneum: Normal. No masses, pneumoperitoneum, orfluid. Lymph Nodes: Normal. No lymphadenopathy. Pelvic Organs/Bladder: Normal. No mass. Vessels: No abdominal aortic aneurysm. Mild vascular calcification. Bones/Soft Tissues: No suspicious focal osseous lesion. Smallfat-containing left inguinal hernia. Sclerosis adjacent to the left aspectof the pubic symphysis is likely degenerative. Lucency along the [id number] body is most likely a benign hemangioma. IMPRESSION: No cause for the reported symptoms identified in the abdomen/pelvis. Ronna Tam MD IMG CT ABD/PELVIS Final Res ult documented in this encounter Visit Diagnoses Diagnosis Hernia, hiatal- Primary Diaphragmatic hernia without mention of obstruction or gangrene Bloating Flatulence, eructation, and gas pain Iron deficiency anemia, unspecified iron deficiency anemia type Weight loss Loss of weight Bloating Flatulence, eructation, and gas pain Iron deficiency anemia, unspecified iron deficiency anemia type Weight loss Loss of weight Hernia, hiatal Diaphragmatic hernia without mention of obstruction or gangrene documented in this encounter Additional Health Concerns Assessment Noted Time PHQ-2 Depression Total Score: 0 03/08/20 23 11:27 AM EST documented as of this encounter Care Teams Mammographer Relationship Specialty Start Date End Date Cesario Calix MD [address] [place] [address], [address] [place] [address] [email or web address] PCP - General 03/21/17 Cesario Calix MD [address] [place] [address], [address] [place] [address] (work) [email or web address] Historical LMR Provider 01/03/17 documented as of this encounter Additional Source Comments The information contained in this document represents components of the legal health record. It is not the complete legal health record.[facility]
--- OUTSIDE RECORDS SUMMARY | 2024-11-24 17:34 | XMS_ITS | Encounter Summary ---
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 Wish to be (Past 1 Month) No 024 12:47 AM EDT Negin Ferreira RN 2. Non-Specific Active Suici claudy Thoughts (Past 1 Month) No 06/30/2023 12:47 AM EDT Negin Ferreira RN 6. Suicidal Behavior (Lifetime) No 12:47 AM EDT Negin Ferreira RN documented as of this encounter Plan of Treatment Upcoming Encounters Date Type Department Care Team (Late st Contact Info) Description 04/20/2025 3:15 PM EST Office Visit [address] [address] Cesario Calix MD [address] [place] [address], [address] [place] [address] documented as of this encounter Visit Diagnoses Not on filedocumented in this encounter Additional Health Concerns Assessment Noted Time PHQ-2 Depression Total Score: 0 03/08/20 23 11:27 AM EST documented as of this encounter Care Teams Manager Fine Dining Relationship Specialty Start Date End Date Cesario Calix MD [address] [place] [address], [address] [place] [address] PCP - General 03/21/17 Cesario Calix MD [address] [place] [address], [address] [address] Historical LMR Provider 01/03/17 documented as of this encounter Additional Source Comments The information contained in this document represents components of the legal health record. It is not the complete legal health record.[facility]
--- OUTSIDE RECORDS SUMMARY | 2024-11-24 17:34 | XMS_ITS | Encounter Summary ---
Author Organization [facility] Address [address] [facility] [address] [place] [address] Phone Care Team Providers Care Pr Intern Name Role Phone Cesario Calxi MD Unavailable Cesario Calix MD Primary Care Provider [phone] Encounter Details Date Type Department Care Team (Latest Contact Info) Description 11/19/2024 Transcribe Orders [facility] [address] [place] [address] Octaviano Harrington MD [address] [facility] [address] [place] [address] Calculus of kidney (Primary Dx); Acquired absence of kidney Social History Tobacco Use Types Packs/Day Years [...] high school, GED, job training, learning the [place] language, technical skills, or developing parenting skills)? [...] housing situation today? 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 Not on f ile documented as of this encounter Plan of Treatment Upcoming Encounters Date Type Department Care Team (Late st Contact Info) Description 04/20/2025 3:15 PM EST Office Visit [facility] [address] [place] [address] Cesario Calix MD [address] [facility], [address] [place] [address] [email or web address] documented as of this encounter Results * TOTAL PROTEIN CREATININE RATIO, RANDOM URINE (11/19/2024 3:34 PM EDT) URINE TOTAL PROTEIN 9.0 mg/dL [facility] URINE CREATININE 139 mg/dL [facility] URINE TP CRE RATIO 0.06 0 - 0.19 [facility] Urine (Urine) 11/19/2024 3:3 4 PM EDT 11/19/2024 3:39 PM EDT us Octaviano Harrington MD URINE ORDERABLES Final Result [address] [address] * Electrolytes (11/19/2024 3:24 PM EDT) SODIUM 139 133 - 146 mmol/L [facility] POTASSIUM 4.2 3.3 - 5.1 mmol/L [facility] CHLORIDE 104 96 - 108 mmol/L [facility] CO2 23 21 - 35 mmol/L [facility] ANION GAP 16 10 - 20 mmol/L [facility] Blood 11/19/2024 3:24 PM EDT 11/19/2024 3:31 PM EDT us Octaviano Harrington MD LAB BLOOD ORDERAB LES Final Result [address] [address] * Calcium (11/19/2024 3:24 PM EDT) CALCIUM 9.8 8.4 - 10.3 mg/dL [facility] Blood 11/19/2024 3:24 PM EDT 11/19/2024 3:31 PM EDT us Octaviano Harrington MD LAB BLOOD ORDERAB LES Final Result Performing Organization Address City/[facility]/ZIP Co de Phone Number [address] [address] * Creatinine/eGFR (11/19/2024 3:24 PM EDT) CREATININE 1.00 0.5 - 1.5 mg/dL [facility] EGFR 88 >59 mL/min/1.7 3m2 [facility] Comment:Estimated glomerular filtration rate calculated using the CKD-EPI refit equation. Blood 11/19/2024 3:24 PM EDT 11/19/2024 3:31 PM EDT us Octaviano Harrington MD LAB BLOOD ORDERAB LES Final Result Performing Organization Address City/[facility]/ZIP Co de Phone Number [address] [address] * (ABNORMAL) BUN (11/19/2024 3:24 PM EDT) BUN 22(H) 6 - 19 mg/dL [facility] Blood 11/19/2024 3:24 PM EDT 11/19/2024 3:31 PM EDT us Octaviano Harrington MD LAB BLOOD ORDERAB LES Final Result Performing Organization Address City/[facility]/ZIP Co de Phone Number [address] [address] documented in this encounter Visit Diagnoses Diagnosis Calculus of kidney- Primary Acquired absence of kidney documented in this encounter Additional Health Concerns Assessment Noted Time PHQ-2 Depression Total Score: 0 07/04/19 24 9:29 PM EDT documented as of this encounter Care Teams Pr Intern Relationship Specialty Start Date End Date Cesario Calix MD [address] [place] [address], [address] [place] [address] [email or web address] PCP - General 03/21/17 Cesario Calix MD [address] [place] [address], [address] [place] [address] [email or web address] Historical LMR Provider 01/03/17 documented as of this encounter Additional Source Comments The information contained in this document represents components of the legal health record. It is not the complete legal health record.[facility]
--- OUTSIDE RECORDS SUMMARY | 2024-11-24 17:34 | XMS_ITS | Encounter Summary ---
Author Organization [facility] Address [address] [facility] [address] [place] [address] Phone Care Team Providers Care Core Feeder Name Role Phone WaqarPrimitivo Joanne DPM Unavailable Unavailable Cesario Calix MD Unavailable [phone] Nathalie Ledesma CNP Unavailable [phone] Cesario Calix MD Primary Care Provider [phone] Cesario Calix MD Unavailable [phone] Cesario Calix MD Unavailable [phone] Encounter Details Date Type Department Care Team (Latest Contact Info) Description 08/22/2017 Transcribe Orders [address] [id number] Octaviano Harrington MD [address] [place] [address] [address] [place], [place] [id number] Acquired absence of kidney (Primary Dx) Social History Tobacco Use Types Packs/Day Years Used Date Smoking Tobacco: Never Assessed Sex and Gender Information Value Date Recorded Sex Assigned at Male 05/07/2019 9:59 PM EST Legal Sex Male 9:36 PM EDT Gender Identity Male 05/07/2019 9:59 PM EST Sexual Orientation Straight 06/30/2023 5: 33 AM EDT documented as of this encounter Plan of Treatment Upcoming Encounters Date Type Department Care Team (Late st Contact Info) Description 04/20/2025 3:15 PM EST Office Visit [address] [place] [address] Cesario Calix MD [address] [facility], [address] [place], [place] [id number] [email or web address] documented as of this encounter Results * (ABNORMAL) Renal panel (08/22/2017 8:02 AM EDT) SODIUM 145 133 - 146 mmol/L [facility] POTASSIUM 4.0 3.3 - 5.1 mmol/L [facility] CHLORIDE 104 96 - 108 mmol/L [facility] CO2 26 21 - 35 mmol/L [facility] GLUCOSE 123(H) 70 - 99 mg/dL [facility] BUN 21(H) 6 - 19 mg/dL [facility] CREATININE 1.40 0.5 - 1.5 mg/dL [facility] CALCIUM 9.3 8.4 - 10.3 mg/dL [facility] PHOSPHORUS 3.0 2.7 - 4.5 mg/dL [facility] ALBUMIN 4.2 3.9 - 4.8 g/dL [facility] EGFR 59(L) >59 mL/min/1.7 3m2 [facility] Comment:If patient is black, multiply result by 1.159. The eGFR calculation has changed from the MDRD equation to the CKD-EPI equation as of May 21, 2017. ANION GAP 19 10 - 20 mmol/L [facility] Blood 08/22/2017 8:02 AM EDT 08/22/2017 8:07 AM EDT us Octaviano Harrington MD LAB BLOOD ORDERAB LES Final Result [facility] [address] [place] [address] * (ABNORMAL) Total protein creatinine ratio, random urine (08/22/2017 8:02 AM EDT) URINE TOTAL PROTEIN 75.4 mg/dL [facility] URINE CREATININE 294 mg/dL [facility] URINE TP CRE RATIO 0.26(H) 0 - 0.19 [facility] Urine (Urine) 08/22/2017 8:0 2 AM EDT 08/22/2017 8:07 AM EDT Octaviano Harrington MD URINE ORDERABLES Final Result Performing Organization Address [facility] Co de Phone Number [address] [address] * (ABNORMAL) Urinalysis w/reflex Urine Culture (08/22/2017 8:02 AM EDT) COLOR Yellow Yellow [facility] CLARITY CLOUDY [facility] GLUCOSE Negative Negative [facility] BILI Negative Negative [facility] KETONES Negative Negative [facility] SPECIFIC GRAVITY >1.030 1.005 - 1.030 [facility] BLOOD 2+(A) Negative [facility] PH 5.5 5.0 - 8.0 [facility] Protein-UA 2+(A) Negative [facility] NITRITE Negative Negative [facility] Leukocyte esterase, ur Negative Negative [facility] Urine (Urine) 08/22/2017 8:0 2 AM EDT 08/22/2017 8:07 AM EDT Octaviano Harrington MD URINE ORDERABLES Final Result Performing Organization Address [facility] Co de Phone Number [address] [address] documented in this encounter Visit Diagnoses Diagnosis Acquired absence of kidney- Primary documented in this encounter Care Teams Core Feeder Relationship Specialty Start Date End Date Cesario Calix MD [address] [place] [address], [address] [place] [address] [email or web address] PCP - General 03/21/17 Primitivo Zavaleta DPM [address] [place] [address] Historical LMR Provider 01/03/1703/25/21 Cesario Calix MD [address] [place] [address], [address] [place] [address] Historical LMR Provider 01/03/17 Nathalie Ledesma CNP [address] [place] [address], [address] [place] [address] Historical LMR Provider 01/03/17 Cesario Calix MD [address] [place] [address], [address] [place] [address] Insurance Assigned Provider 09/21/17 Cesario Calix MD [address] [place] [address], [address] [place] [address] Insurance Assigned Provider 11/28/19 documented as of this encounter Additional Source Comments The information contained in this document represents components of the legal health record. It is not the complete legal health record.[facility]
--- OUTSIDE RECORDS SUMMARY | 2024-11-24 17:34 | XMS_ITS | Encounter Summary ---
Author Organization [facility] Address [address] [facility] [address] [place] [address] Phone Care Team Providers Care Steamboat Inspector Name Role Phone Cesario Calix MD Unavailable Cesario Calix MD Primary Care Provider [phone] Encounter Details Date Type Department Care Team (Late st Contact Info) Description 04/02/2023 Procedure Pass [facility], Ct Scan - [facility] [address] [place] [address] Social History Tobacco Use Types Packs/Day Years [...] Description 04/20/2025 3:15 PM EST Office Visit [address] [address] Cesario Calix MD [address] [place] [address], [address] [address] documented as of this encounter Visit Diagnoses Not on filedocumented in this encounter Additional Health Concerns Assessment Noted Time PHQ-2 Depression Total Score: 0 03/08/20 23 11:27 AM EST documented as of this encounter Care Teams Steamboat Inspector Relationship Specialty Start Date End Date Cesario Calix MD [address] [place] [address], [address] [address] [email or web address] PCP - General 03/21/17 Cesario Calix MD [address] [place] [address], [address] [address] [email or web address] Historical LMR Provider 01/03/17 documented as of this encounter Additional Source Comments The information contained in this document represents components of the legal health record. It is not the complete legal health record.[facility]
== END 2024-11-24 15:38 | disposition home or self-care (01) ==
LOC: HO.HKAS 15:11
PROVIDERS: PCP Internal Medicine; Visit Provider Internal Medicine Nephrology
DX: Z90.5 Acquired absence of kidney (principal); N20.0 Calculus of kidney
CPT/HCPCS: 99214

== ENCOUNTER → 2024-11-24 15:11 | Outpatient (BNVA) | payer OTHER, SELFPAY | PROVIDERS: PCP Internal Medicine; Visit Provider Internal Medicine Nephrology | DX: N20.0 Calculus of kidney (principal); Z90.5 Acquired absence of kidney | CPT/HCPCS: 99212 ==